=== PATIENT | female | born 1965 | race Caucasian/White ===

== ENCOUNTER 2022-09-10 06:25 | Day surgery (SDC) | payer BC, OTHER ==
[2022-09-10] MEDS ORDERED: Ringers Lactate 1,000 ML IV ONE (06:31)
[2022-09-10] MEDS ORDERED: LIDOCAINE 1% MPF 5 ML VIAL ONE (07:30)
[2022-09-10] MEDS ORDERED: propofoL 200 MG/20 ML VIAL IV ONE (07:30)
--- NOTE | 2022-09-10 07:54 | ENDO RPT ---
[address], [address] COLONOSCOPY PROCEDURE REPORT EXAM DATE: 09/10/2022 PATIENT NAME: Isabelle Montero MR #: [id number] BIRTHDATE: 1965 ATTENDING: Pro Nunez MD STATUS: outpatient SCRAP COLLECTOR: Zach Hicks CST and Shirley Clemens RN INDICATIONS: The patient is a 57 yr old Female here for a colonoscopy due to colon cancer screening PROCEDURE PERFORMED: Colonoscopy MEDICATIONS: Per Anesthesia. ESTIMATED BLOOD LOSS: None CONSENT: The patient understands the risks and benefits of the procedure and understands that these risks include, but are not limited to: sedation, allergic reaction, infection, perforation and/or bleeding. Alternative means of evaluation and treatment include, among others: physical exam, x-rays, and/or surgical intervention. The patient elects to proceed with this endoscopic procedure. DESCRIPTION OF PROCEDURE: During intra-op preparation period all mechanical medical equipment was checked for proper function. Hand hygiene and appropriate measures for infection prevention was taken. Procedure, possible complications, alternatives including, but not limited to possibility of bleeding, perforation, tear, infection, sepsis, need for surgery, need for blood transfusion, were explained to the patient. After the risks, benefits and alternatives of the procedure were thoroughly explained, Informed consent was verified, confirmed and timeout was successfully executed by the treatment team. The patient was placed in the left lateral position. A digital rectal exam was performed and revealed hemorrhoids. After appropriate level of anesthesia, the scope was passed. The EC-[id number] ([id number] endoscope was introduced through the anus and advanced to the cecum, which was identified by transillumination from the light source, the appendix, and the ileocecal valve. The quality of the prep was fair. The instrument was then slowly withdrawn as the colon was fully examined. Scope withdrawal time was . COLON FINDINGS: Diverticula was found in the descending colon. The opening was medium sized. Moderate sized internal and external hemorrhoids were found. Retroflexed views revealed no abnormalities. The scope was then completely withdrawn from the patient and the procedure terminated. ADVERSE EVENTS: There were no complications. IMPRESSIONS: 1. Diverticula in the descending colon 2. Moderate sized internal and external hemorrhoids RECOMMENDATIONS: 1. follow-up: office 1-2 week(s) 2. hemorrhoidal hygiene 3. no seeds in diet RECALL: Return in 5-10 year(s) for Colonoscopy. Pro Nunez MD eSigned: Pro Nunez MD 09/10/2022 7:53 AM cc: Pro Nunez M.D. CPT CODES: ICD9 CODES: PATIENT NAME: Isabelle Montero MR#: [id number]
[2022-09-10 08:29] VITALS: BP 127/54; TEMP 97.4; O2SAT 99
== END 2022-09-10 08:45 | disposition home or self-care (01) ==
LOC: OR 06:25
PROVIDERS: ATTEND Surgery
PROC: 0DJD8ZZ Inspection of Lower Intestinal Tract, Via Natural or Artificial Opening Endoscopic (ICD-10-PCS; principal; 2022-09-10 07:30)
DX: K62.5 Hemorrhage of anus and rectum (principal); R19.4 Change in bowel habit; K57.30 Diverticulosis of large intestine without perforation or abscess without bleeding; K64.4 Residual hemorrhoidal skin tags; K64.8 Other hemorrhoids; E66.9 Obesity, unspecified
CPT/HCPCS: 45378; J2704; J2001; J7120